=== PATIENT | female | born 1970 | race Caucasian/White ===

== ENCOUNTER 2017-05-06 16:41 | Emergency (ER) | payer OTHER ==
[~2017-05-06] VITALS: Ht 167.6 cm; Wt 90.0 kg
[2017-05-06 16:44] VITALS: BP 229/103; PULSE 98; RESP 16; TEMP 98; O2SAT 99
--- NOTE | 2017-05-06 18:25 | PD ---
HPI Chief Complaint: Buyer Tobacco Head Problem/Complaint Time Seen by Provider: 18:16 Travel History International Travel<30 days: No Contact w/Intl Traveler<30days: No Traveled to known affect area: No History of Present Illness HPI This is a 46-year-old female who presents to the emergency department with vaginal bleeding. She says she's been bleeding for 8 days now. She says she typically has periods that last about 6 days and her fairly heavy and she is accustomed to heavy menstrual cycles but she says that this bleeding has been different. She says that she will not be bleeding and then all of a sudden she will have gushing of bright red blood that looks like a crime scene. It will subside and then later she'll have another episode where she feels like she is gushing uncontrollably bright red blood. She says the blood is much brighter than her usual menstrual cycles and she's having some lower abdominal cramping both in the middle and the right abdomen. She's not having any other symptoms of menopause. She is feeling lightheaded and dizzy. She went to an outside hospital last evening. They did some blood work which was reassuring and did a pelvic exam. They did not do an ultrasound at that time. 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 [facility] Past Medical History Medical History: Denies Significant Hx ?: Not Social History Tobacco Use: Yes Allergies-Medications (Allergen,Severity, Reaction): Coded Allergies: No Known Allergies (Unverified , 05/06/17) Reported Meds & Prescriptions Reported Meds & Active Scripts Active No Active Prescriptions or Reported Medications Review of Systems Except as stated in HPI: all other systems reviewed are Neg Physical Exam Narrative GENERAL:Well appearing, no acute distress SKIN: Focused skin assessment warm and dry. HEAD: Atraumatic. Normocephalic. EYES: Pupils equal and round. No injection or drainage. ENT: Moist mucous membranes NECK: Trachea midline. CARDIOVASCULAR: Regular rate and rhythm. No murmur appreciated. RESPIRATORY: Clear to auscultation. Breath sounds equal bilaterally. GASTROINTESTINAL: Abdomen soft, tender to palpation in the suprapubic region and right adnexa UNDER TRIMMER: small amount of dark clot at the os, no obvious masses MUSCULOSKELETAL: No obvious deformities. NEUROLOGICAL: Awake and alert. No obvious cranial nerve deficits. Moving all extremities. PSYCHIATRIC: Appropriate mood and affect; insight and judgment normal. Data Data Last Documented VS Vital Signs Date Time Temp Pulse Resp B/P Pulse Ox O2 Delivery O2 Flow Rate FiO2 05/06/17 16:44 98.0 98 16 229/103 99 Orders Complete Blood Count With Diff (05/06/17 18:22) Prothrombin Time / Inr (Pt) (05/06/17 18:22) Act Partial Throm Time (Ptt) (05/06/17 18:22) Basic Metabolic Panel (Bmp) (05/06/17 18:22) Us Pelvis Comp W Transvaginal (05/06/17 ) Ed Urine Pregnancytest Poc (05/06/17 18:22) Labs Laboratory Tests Test 05/06/17 18:35 White Blood Count 11.4 TH/MM3 Red Blood Count 4.60 MIL/MM3 Hemoglobin 14.0 GM/DL Hematocrit 41.4 % Mean Corpuscular Volume 90.0 FL Mean Corpuscular Hemoglobin 30.5 PG Mean Corpuscular Hemoglobin 33.9 % Concent Red Cell Distribution Width 13.3 % Platelet Count 295 TH/MM3 Mean Platelet Volume 8.7 FL Neutrophils (%) (Auto) 65.8 % Lymphocytes (%) (Auto) 24.1 % Monocytes (%) (Auto) 7.9 % Eosinophils (%) (Auto) 1.7 % Basophils (%) (Auto) 0.5 % Neutrophils # (Auto) 7.5 TH/MM3 Lymphocytes # (Auto) 2.8 TH/MM3 Monocytes # (Auto) 0.9 TH/MM3 Eosinophils # (Auto) 0.2 TH/MM3 Basophils # (Auto) 0.1 TH/MM3 CBC Comment DIFF FINAL Differential Comment Prothrombin Time 10.4 SEC Prothromb Time International 0.9 RATIO Ratio Activated Partial 24.2 SEC Thromboplast Time MDM Medical Decision Making Medical Screen Exam Complete: Yes Emergency Medical Condition: Yes Interpretation(s) afebrile, hypertensive mild leukocytosis Differential Diagnosis Menorrhagia, AVM, malignancy, menopause Narrative Course This is a 46-year-old female who presents to the emergency department with vaginal bleeding. It concerns me because she's having any sports of bright red bleeding. Labs will be obtained, pelvic exam was fairly benign. Pelvic ultrasound will be obtained. If that is reassuring at think she can safely follow up with her combo welder at the end of the week. Scripts No Active Prescriptions or Reported Meds Danica Baker MD May 06, 2017 18:25
[2017-05-06 18:52] LABS: AUTOMATED NEUTROPHIL # 7.5 TH/MM3 (1.8-7.7); BASOPHIL # 0.1 TH/MM3 (0-0.2); BASOPHIL % 0.5 % (0.0-2.0); EOSINOPHIL # 0.2 TH/MM3 (0-0.4); EOSINOPHIL % 1.7 % (0.0-4.0); HEMATOCRIT 41.4 % (35.0-46.0); HEMO FLAGS DIFF FINAL; LYMPH % 24.1 % (9.0-44.0); LYMPHOCYTE # 2.8 TH/MM3 (1.0-4.8); MEAN CORPUSCULAR HEMOGLOBIN 30.5 PG (27.0-34.0); MEAN CORPUSCULAR HGB CONC 33.9 % (32.0-36.0); MONO % 7.9 % (0.0-8.0); NEUT % 65.8 % (16.0-70.0); PLATELET COUNT 295 TH/MM3 (150-450); RED CELL DISTRIBUTION WIDTH 13.3 % (11.6-17.2); WHITE BLOOD COUNT 11.4 TH/MM3 (4.0-11.0)
[2017-05-06 18:56] LABS: APTT (PATIENT) 24.2 SEC (24.3-30.1); INTERNATIONAL NORMALIZED RATIO 0.9 RATIO; PROTHROMBIN TIME - PATIENT 10.4 SEC (9.8-11.6)
[2017-05-06 19:24] LABS: BICARBONATE 24.1 MEQ/L (21.0-32.0)
[2017-05-06 19:25] LABS: POTASSIUM 4.2 MEQ/L (3.5-5.1)
[2017-05-06] MEDS ORDERED: KETOROLAC TROMETHAMINE 30 MG/ML (IVP) VIAL IV PUSH ONE (19:30)
--- NOTE | 2017-05-06 20:05 | RADRPT ---
EXAM DATE/TIME: 05/06/2017 19:15 CORRECTION Corrected on: May 06, 2017; typographical error in the impression was corrected. [facility] COMPARISON: No previous studies available for comparison. INDICATIONS : Heavy vaginal bleeding and right lower abdominal pain. MEDICAL HISTORY : Heavy vaginal bleeding. SURGICAL HISTORY : ENCOUNTER: Initial ACUITY: 1 week PAIN SCORE: 9/10 LOCATION: Bilateral pelvis. MEASUREMENTS: UTERUS: 10.5 x 8.8 x 5.9 cm ENDOMETRIAL STRIPE: >20 mm RIGHT OVARY: 2.8 x 1.7 x 1.7 cm LEFT OVARY: 3.1 x 2.1 x 2.5 cm FINDINGS: UTERUS: The myometrium has homogeneous echotexture without mass. Endometrium is markedly thickened with a mi ldly heterogeneous echotexture, predominantly hyperechoic. No gestational sac seen. There are sever al cystic areas in the cervix, the largest of which measures 1.5 x 1.3 cm. This is anechoic, possibl y located within the endocervical canal. RIGHT OVARY: Ovary contains no mass or significant cystic lesion. LEFT OVARY: No evidence of mass. No increased flow with color Doppler. Dominant cyst measuring 2.7 x 2.2 cm. MISCELLANEOUS: No free fluid. CONCLUSION: 1. Prominent thickening of the endometrium without focal cystic areas. 2. 1.5 cm cyst in the endocervical canal. 3. 2.7 cm left ovarian cyst. 4. No evidence of free fluid. Hawk Smith MD on May 06, 2017 at 20:00 Board Certified Radiologist. This report was verified electronically. Hawk Smith MD on May 06, 2017 at 20:21 Board Certified Radiologist. This report was verified electronically.
--- NOTE | 2017-05-06 20:26 | PD ---
Physical Exam Narrative GENERAL: Well-nourished, well-developed patient. SKIN: Warm and dry. HEAD: Normocephalic and atraumatic. EYES: No injection or drainage. ENT: No nasal drainage noted. NECK: Supple, trachea midline. CARDIOVASCULAR: Regular rate and rhythm RESPIRATORY: no increased effort. No accessory muscle use. NEUROLOGICAL: Awake and alert. Motor and sensory grossly within normal limits. Normal speech. Data Data Last Documented VS Vital Signs Date Time Temp Pulse Resp B/P Pulse Ox O2 Delivery O2 Flow Rate FiO2 05/06/17 16:44 98.0 98 16 229/103 99 162/87 on recheck on own, patient advised to monitor as outpatient Orders Complete Blood Count With Diff (05/06/17 18:22) Prothrombin Time / Inr (Pt) (05/06/17 18:22) Act Partial Throm Time (Ptt) (05/06/17 18:22) Basic Metabolic Panel (Bmp) (05/06/17 18:22) Us Pelvis Comp W Transvaginal (05/06/17 ) Ed Urine Pregnancytest Poc (05/06/17 18:22) Ketorolac Inj (Toradol Inj) (05/06/17 19:30) Labs Laboratory Tests Test 05/06/17 18:35 White Blood Count 11.4 TH/MM3 Red Blood Count 4.60 MIL/MM3 Hemoglobin 14.0 GM/DL Hematocrit 41.4 % Mean Corpuscular Volume 90.0 FL Mean Corpuscular Hemoglobin 30.5 PG Mean Corpuscular Hemoglobin 33.9 % Concent Red Cell Distribution Width 13.3 % Platelet Count 295 TH/MM3 Mean Platelet Volume 8.7 FL Neutrophils (%) (Auto) 65.8 % Lymphocytes (%) (Auto) 24.1 % Monocytes (%) (Auto) 7.9 % Eosinophils (%) (Auto) 1.7 % Basophils (%) (Auto) 0.5 % Neutrophils # (Auto) 7.5 TH/MM3 Lymphocytes # (Auto) 2.8 TH/MM3 Monocytes # (Auto) 0.9 TH/MM3 Eosinophils # (Auto) 0.2 TH/MM3 Basophils # (Auto) 0.1 TH/MM3 CBC Comment DIFF FINAL Differential Comment Prothrombin Time 10.4 SEC Prothromb Time International 0.9 RATIO Ratio Activated Partial 24.2 SEC Thromboplast Time Sodium Level 137 MEQ/L Potassium Level 4.2 MEQ/L Chloride Level 104 MEQ/L Carbon Dioxide Level 24.1 MEQ/L Anion Gap 9 MEQ/L Blood Urea Nitrogen 10 MG/DL Creatinine 0.67 MG/DL Estimat Glomerular Filtration 95 ML/MIN Rate Random Glucose 102 MG/DL Calcium Level 9.3 MG/DL [facility] Supervised Visit with [place]: No Interpretation(s) Last 24 hours Impressions Pelvis Ultrasound 05/06/17 0000 Signed Impressions: Service Date/Time: Saturday, May 06, 2017 19:15 - CONCLUSION: 1. Prominent thickening of the endometrium without focal cystic areas. 2. 1.5 cm cyst in the endocervical canal. 3. 2.7 cm left ovarian cyst. 4. Evidence of free fluid. Hawk Smith MD d/w radiologist and states dictation error as there is no free fluid Narrative Course Patient denies any new complaints and states that they are feeling better. Patient happy with care, all questions answered. Patient knows that follow up is incumbent on them and to return to the emergency room immediately if new or worsening symptoms develop. Patient given strict return precautions, vitals reviewed and are normal, agrees to further workup as an outpatient. Diagnosis Primary Impression: Vaginal bleeding Patient Instructions: General Instructions Additional Instruction: return as needed, follow with gynecology this week, motrin as needed for pain, keep blood pressure log Med/Other Pt SpecificInfo: No Change to Meds Scripts No Active Prescriptions or Reported Meds Disposition: 01 DISCHARGE HOME Condition: Stable Lydia Bourgeois MD May 06, 2017 20:25
== END 2017-05-06 20:54 | disposition home or self-care (01) ==
LOC: NEPC 16:41
DX: N93.9 Abnormal uterine and vaginal bleeding, unspecified (principal); N83.202 Unspecified ovarian cyst, left side; Z72.0 Tobacco use
CPT/HCPCS: 76830; 76856; 80048; 84703; 85025; 85610; 85730; 96374; 99285; J1885

== ENCOUNTER 2018-01-09 06:52 | Observation (INO) | payer OTHER ==
[~2018-01-09] VITALS: Ht 167.6 cm; Wt 90.0 kg
[2018-01-09] VITALS (10 sets, daily range): BP systolic 139–218; BP diastolic 80–116; PULSE 76–104; RESP 16–19; TEMP 96.4–98.6; O2SAT 95–100
[2018-01-09] MEDS ORDERED: LORazepam 2 MG/ML VIAL IV PUSH ONE (07:15)
[2018-01-09] MEDS ORDERED: SODIUM CHLORIDE 0.9% FLUSH 10 ML FLUSH IVF PRN (07:15)
[2018-01-09] MEDS ORDERED: IBUP1TAB5 PO (07:19)
[2018-01-09 07:47] LABS: AUTOMATED NEUTROPHIL # 7.1 TH/MM3 (1.8-7.7); BASOPHIL % 0.4 % (0.0-2.0); EOSINOPHIL # 0.1 TH/MM3 (0-0.4); EOSINOPHIL % 0.7 % (0.0-4.0); HEMATOCRIT 46.4 % (35.0-46.0); HEMOGLOBIN 15.7 GM/DL (11.6-15.3); LYMPH % 18.4 % (9.0-44.0); LYMPHOCYTE # 1.8 TH/MM3 (1.0-4.8); MEAN CELL VOLUME 89.7 FL (80.0-100.0); MEAN CORPUSCULAR HEMOGLOBIN 30.2 PG (27.0-34.0); MEAN CORPUSCULAR HGB CONC 33.7 % (32.0-36.0); MEAN PLATELET VOLUME 8.7 FL (7.0-11.0); MONO % 8.2 % (0.0-8.0); MONOCYTE # 0.8 TH/MM3 (0-0.9); NEUT % 72.3 % (16.0-70.0); PLATELET COUNT 292 TH/MM3 (150-450); RED BLOOD COUNT 5.18 MIL/MM3 (4.00-5.30); RED CELL DISTRIBUTION WIDTH 14.3 % (11.6-17.2); WHITE BLOOD COUNT 9.8 TH/MM3 (4.0-11.0)
--- NOTE | 2018-01-09 07:54 | RADRPT ---
EXAM DATE/TIME: 01/09/2018 07:38 [facility] COMPARISON: No previous studies available for comparison. INDICATIONS : Left face numbness RADIATION DOSE: 36.24 CTDIvol (mGy) MEDICAL HISTORY : None SURGICAL HISTORY : Tubal ligation. Hysterectomy. section.C5-C6 surgery ENCOUNTER: Initial ACUITY: 1 day PAIN SCALE: 4/10 LOCATION: cranial TECHNIQUE: Multiple contiguous axial images were obtained of the head. Using automated exposure control and adj ustment of the mA and/or kV according to patient size, radiation dose was kept as low as reasonably a chievable to obtain optimal diagnostic quality images. DICOM format image data is available electro nically for review and comparison. FINDINGS: CEREBRUM: The ventricles are normal for age. No evidence of midline shift, mass lesion, hemorrhage or acute in farction. No extra-axial fluid collections are seen. POSTERIOR FOSSA: The cerebellum and brainstem are intact. The 4th ventricle is midline. The cerebellopontine angle i s unremarkable. EXTRACRANIAL: The visualized portion of the orbits is intact. SKULL: The calvaria is intact. No evidence of skull fracture. CONCLUSION: Normal examination. Maco Gonsales MD on January 09, 2018 at 7:52 Board Certified Radiologist. This report was verified electronically.
--- NOTE | 2018-01-09 08:07 | PD ---
HPI . Paresthesias Chief Complaint: Neuro Symptoms/ Deficits Time Seen by Provider: 07:04 Travel History International Travel<30 days: No Contact w/Intl Traveler<30days: No Traveled to known affect area: No History of Present Illness HPI This patient presents with a chief complaint of paresthesias involving the left side of her body. Onset was at 6 AM. Symptoms have persisted. Symptoms are mild. There are no exacerbating or relieving factors. No previous similar history. She is a smoker. Otherwise, she has no risk factors for cerebrovascular disease such as hypertension, diabetes, hyperlipidemia. PFSH Past Medical History Diminished Hearing: No GERD: Yes ?: Not : 4 Para: 3 Tubal Ligation: Yes Past Surgical History Section: Yes (X 1) Gynecologic Surgery: Yes Hysterectomy: Yes Other Surgery: Yes (BREAST AUGMENTATION, TUMMY TUCK, NECK SX) Social History Alcohol Use: Yes Tobacco Use: Yes Substance Use: No Allergies-Medications (Allergen,Severity, Reaction): Coded Allergies: No Known Allergies (Unverified , 05/06/17) Reported Meds & Prescriptions Reported Meds & Active Scripts Active Reported Ibuprofen 400 Mg Tab 400 Mg PO Q6H PRN Review of Systems Except as stated in HPI: all other systems reviewed are Neg General / Constitutional: No: Fever, Chills Eyes: No: Diploplia, Blurred Vision HENT: No: Headaches Cardiovascular: No: Chest Pain or Discomfort, Palpitations Respiratory: No: Shortness of Breath Gastrointestinal: No: Nausea, Vomiting Neurologic: Positive: Focal Abnormalities, Paresthesia, No: Weakness, Dizziness , Headache, Change in Mentation, Slurred Speech Physical Exam Narrative GENERAL: Patient is awake and alert. She looks anxious. SKIN: warm/dry. HEAD: Normocephalic. Atraumatic. EYES: Pupils equal and round. No scleral icterus. No injection or drainage. ENT: No nasal bleeding or discharge. Mucous membranes pink and moist. NECK: Trachea midline. Full range of motion without pain.. CARDIOVASCULAR: Regular rate and rhythm. Heart sounds are normal. RESPIRATORY: No accessory muscle use. Clear to auscultation. Breath sounds equal bilaterally. MUSCULOSKELETAL: No obvious deformities. NEUROLOGICAL: A and O 3. Lifting her brows, closing her eyes, smiling and protruding her tongue are all symmetrical. Full and equal muscle strength in all muscle groups. Negative pronator drift. PSYCHIATRIC: Appropriate mood and affect; insight and judgment normal. Data Data Last Documented VS Vital Signs Date Time Temp Pulse Resp B/P (MAP) Pulse Ox O2 Delivery O2 Flow Rate FiO2 01/09/18 07:17 97 Room Air 01/09/18 07:13 104 18 01/09/18 06:58 98.2 Orders Orders Electrocardiogram (01/09/18 07:13) Complete Blood Count With Diff (01/09/18 07:13) Basic Metabolic Panel (Bmp) (01/09/18 07:13) Troponin I (01/09/18 07:13) Ct Brain W/O Iv Contrast(Rout) (01/09/18 07:13) Ecg Monitoring (01/09/18 07:13) Iv Access Insert/Monitor (01/09/18 07:13) Oximetry (01/09/18 07:13) Sodium Chloride 0.9% Flush (Ns Flush) (01/09/18 07:15) Lorazepam Inj (Ativan Inj) (01/09/18 07:15) Admit Order (Ed Use Only) (01/09/18 09:26) Labs Laboratory Tests Test 01/09/18 07:30 White Blood Count 9.8 TH/MM3 Red Blood Count 5.18 MIL/MM3 Hemoglobin 15.7 GM/DL Hematocrit 46.4 % Mean Corpuscular Volume 89.7 FL Mean Corpuscular Hemoglobin 30.2 PG Mean Corpuscular Hemoglobin Concent 33.7 % Red Cell Distribution Width 14.3 % Platelet Count 292 TH/MM3 Mean Platelet Volume 8.7 FL Neutrophils (%) (Auto) 72.3 % Lymphocytes (%) (Auto) 18.4 % Monocytes (%) (Auto) 8.2 % Eosinophils (%) (Auto) 0.7 % Basophils (%) (Auto) 0.4 % Neutrophils # (Auto) 7.1 TH/MM3 Lymphocytes # (Auto) 1.8 TH/MM3 Monocytes # (Auto) 0.8 TH/MM3 Eosinophils # (Auto) 0.1 TH/MM3 Basophils # (Auto) 0.0 TH/MM3 CBC Comment DIFF FINAL Differential Comment Blood Urea Nitrogen 15 MG/DL Creatinine 0.73 MG/DL Random Glucose 94 MG/DL Calcium Level 8.9 MG/DL Sodium Level 137 MEQ/L Potassium Level 4.3 MEQ/L Chloride Level 104 MEQ/L Carbon Dioxide Level 24.1 MEQ/L Anion Gap 9 MEQ/L Estimat Glomerular Filtration Rate 85 ML/MIN Troponin I LESS THAN 0.02 NG/ML MDM Medical Decision Making Medical Screen Exam Complete: Yes Emergency Medical Condition: Yes Medical Record Reviewed: Yes (This patient has no chronic medical issues listed on her problems.) Interpretation(s) EKG shows a sinus rhythm with a rate of 101. No ST segment elevation or depression. Differential Diagnosis Differential diagnosis includes but is not limited to TIA, CVA, brain tumor, migraine, anxiety Narrative Course This patient presents complaining with left-sided paresthesias. Her neurological exam is intact. She seems a little anxious. Stroke workup is in process. In the meantime, she is being given Ativan. CBC & BMP Diagram 01/09/18 07:30 Calcium Level 8.9 trop < 0.[address] 01/09/18 0713 Signed Impressions: Service Date/Time: Tuesday, January 09, 2018 07:38 - CONCLUSION: Normal examination. Maco Gonsales MD This patient has possibly had a TIA which resolved prior to presentation. She is interested in an observation admission for further evaluation. Physician Communication Physician Communication Dr. Thompson will admit to OBS for further evaluation. Diagnosis Primary Impression: TIA (transient ischemic attack) Qualified Codes: G45.1 - Carotid artery syndrome (hemispheric) Admitting Information Admitting Physician Requests: Observation Condition: Stable Araceli Villaseñor MD Jan 09, 2018 08:07
[2018-01-09 08:11] LABS: TROPONIN I LESS THAN 0.02 NG/ML (0.02-0.05)
[2018-01-09 08:12] LABS: BICARBONATE 24.1 MEQ/L (21.0-32.0); BLOOD UREA NITROGEN 15 MG/DL (7-18); CALCIUM 8.9 MG/DL (8.5-10.1); CHLORIDE 104 MEQ/L (98-107); CREATININE 0.73 MG/DL (0.50-1.00); GLOMERULAR FILTRATION RATE 85 ML/MIN (>89); GLUCOSE,RANDOM 94 MG/DL (74-106); SODIUM (NA) 137 MEQ/L (136-145)
[2018-01-09] MEDS ORDERED: ENALAPRILAT 1.25 MG/ML VIAL IV PUSH PRN (09:30)
[2018-01-09] MEDS ORDERED: SODIUM CHLORIDE 0.9% FLUSH 10 ML FLUSH IV FLUSH PRN ×2 (09:30→20:15)
--- NOTE | 2018-01-09 10:25 | HHI.HP ---
HPI Service [facility] Hospitalists Primary Care Physician Dr. Alena Rivera Admission Diagnosis Transient neurological deficit Chief Complaint: Left UE shaking and discoordination Travel History International Travel<30 Days: No Contact w/Intl Traveler <30 Da: No Traveled to Known Affected Are: No History of Present Illness Mrs. Duenas is a pleasant 47 y/o WF with tobacco use and elevated BP recently. Pt presented to the ED with transient neurological symptoms. She reportedly woke up this morning feeling normal when she went downstairs to drink her coffee she had some shakiness in her left hand that she couldn't control or stop and some dis-coordination of the left hand when trying to bring her cup to her mouth. She also felt that her head was shaky and left like the left side of her face "felt weird." She still went to work this morning but the symptoms were persisting. She states that when she was trying to walk down the [place] at work she felt off balance and was listing to the left and bumping into the wall. She states that these symptoms persisted until she came to the hospital, approximately 2 hours. She was fully aware of what was going on during this episode but states that she felt "very slow." There was no loss of bowel or bladder function. She had a similar episode after she had cervical spine surgery in 2005 and was in the ICU for 2 weeks reportedly after that surgery. She reports that Neurologist saw her after that hospitalization for a "head yarely " and reports that she was told she had "dystonia" when she lived in [place]. No family hx of tremors. She states that when she has been seen at her doctors office's recently her BP has been high but she is not currently on any medications. Her BP in the ED was elevated at 213/99 at admission. She also had been seen by Endocrinology in the past for "adrenal gland or cortisol" issues in 2003. Denies any issues with anxiety or depression. She is a chronic tobacco user and smokes 1ppd since around age 20. Denies any illicit drug use. Pt did drink more alcohol than she usually does this past weekend because she was at a friends birthday [employer]. She typically has 1-2 alcoholic beverage around 3 times per week. Review of Systems Constitutional: DENIES: Diaphoretic episodes, Fever, Chills, Dizziness Eyes: DENIES: Blurred vision, Diplopia, Vision loss Ears, nose, mouth, throat: DENIES: Tinnitus, Hearing loss, Vertigo, Hoarseness , Ear Pain, Running Nose Respiratory: DENIES: Cough, Shortness of breath Cardiovascular: DENIES: Chest pain, Palpitations, Lower Extremity Edema Gastrointestinal: DENIES: Abdominal pain, Diarrhea, Nausea, Vomiting Genitourinary: DENIES: Urinary frequency, Urinary incontinence, Urgency Musculoskeletal: DENIES: Back pain Integumentary: DENIES: Rash Neurologic: COMPLAINS OF: Localized weakness, Paresthesias, Tremor, Poor Balance, DENIES: Headache Psychiatric: DENIES: Confusion Past Family Social History Past Medical History Tobacco use Hx of uterine fibroids Past Surgical History Laparoscopic supracervical hysterectomy in 2017 Cesarian section x 1 Bilateral breast augmentation (2000) Abdominoplasty (2000) Bilateral tubal ligation Neck surgery (2005) Reported Medications Ibuprofen 400 Mg PO Q6H PRN Allergies: Coded Allergies: No Known Allergies (Unverified Allergy, Unknown, 01/09/18) Family History Brother at age 44 from CAD/GA Sister had GA at age 35 Grandmother with hx of aneurysm Social History (+)Tobacco use, 1ppd since age 20 (+)Alcohol use, 1-2 drinks, 3 times per week Pt is and has 3 grown children 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 SKIN: No rashes, ecchymoses or lesions. Cool and dry. HEENT: Atraumatic. Normocephalic. No temporal or scalp tenderness. No scleral icterus. Airway patent. NECK: Trachea midline, supple, nontender. CARDIO: Regular. RESP: CTA bilaterally. No wheezes, rales, or rhonchi. ABD: +BS, soft, non-tender, nondistended. EXT: Extremities without clubbing, cyanosis, or edema. NEURO: Awake and alert. Cranial nerves II through XII intact. Motor and sensory grossly within normal limits. Five out of 5 muscle strength in all muscle groups. Normal speech. Laboratory Laboratory Tests Test 01/09/18 07:30 White Blood Count 9.8 Red Blood Count 5.18 Hemoglobin 15.7 Hematocrit 46.4 Mean Corpuscular Volume 89.7 Mean Corpuscular Hemoglobin 30.2 Mean Corpuscular Hemoglobin Concent 33.7 Red Cell Distribution Width 14.3 Platelet Count 292 Mean Platelet Volume 8.7 Neutrophils (%) (Auto) 72.3 Lymphocytes (%) (Auto) 18.4 Monocytes (%) (Auto) 8.2 Eosinophils (%) (Auto) 0.7 Basophils (%) (Auto) 0.4 Neutrophils # (Auto) 7.1 Lymphocytes # (Auto) 1.8 Monocytes # (Auto) 0.8 Eosinophils # (Auto) 0.1 Basophils # (Auto) 0.0 CBC Comment DIFF FINAL Differential Comment Blood Urea Nitrogen 15 Creatinine 0.73 Random Glucose 94 Calcium Level 8.9 Sodium Level 137 Potassium Level 4.3 Chloride Level 104 Carbon Dioxide Level 24.1 Anion Gap 9 Estimat Glomerular Filtration Rate 85 Troponin I LESS THAN 0.02 Result Diagram: 01/09/1872901/09/18729 Imaging Last Impressions Head CT 01/09/18712 Signed Impressions: Service Date/Time: Tuesday, January 09, 2018 07:38 - CONCLUSION: Normal examination. MD Renny Colon VTE Risk Assessment Tyreserini VTE Risk Assessment: No/Low Risk (score <= 1) Caprini Risk Assessment Model Point Value = 1 Point Value = 2 Point Value = 3 Point Value = 5 Age 41-60 Minor surgery BMI > 25 kg/m2 Swollen legs Varicose veins or History of unexplained or recurrent spontaneous Oral contraceptives or hormone replacement Sepsis (< 1 month) Serious lung disease, including pneumonia (< 1 month) Abnormal pulmonary function Acute myocardial infarction Congestive heart failure (< 1 month) History of inflammatory bowel disease Medical patient at bed rest Age 61-74 Arthroscopic surgery Major open surgery (> 45 min) Laparoscopic surgery (> 45 min) Malignancy Confined to bed (> 72 hours) Immobilizing plaster cast Central venous access Age >= 75 History of VTE Family history of VTE Factor V Leiden Prothrombin [id number] Lupus anticoagulant Anticardiolipin antibodies Elevated serum homocysteine Heparin-induced thrombocytopenia Other congenital or acquired thrombophilia Stroke (< 1 month) Elective arthroplasty Hip, pelvis, or leg fracture Acute spinal cord injury (< 1 month) Prophylaxis Regimen Total Risk Factor Score Risk Level Prophylaxis Regimen 0-1 Low Early ambulation 2 Moderate Order ONE of the following: *Sequential Compression Device (SCD) *Heparin 5000 units SQ BID 3-4 Higher Order ONE of the following medications: *Heparin 5000 units SQ TID *Enoxaparin/Lovenox 40 mg SQ daily (WT < 150 kg, CrCl > 30 mL/min) *Enoxaparin/Lovenox 30 mg SQ daily (WT < 150 kg, CrCl > 10-29 mL/min) *Enoxaparin/Lovenox 30 mg SQ BID (WT < 150 kg, CrCl > 30 mL/min) AND/OR *Sequential Compression Device (SCD) 5 or more Highest Order ONE of the following medications: *Heparin 5000 units SQ TID (Preferred with Epidurals) *Enoxaparin/Lovenox 40 mg SQ daily (WT < 150 kg, CrCl > 30 mL/min) *Enoxaparin/Lovenox 30 mg SQ daily (WT < 150 kg, CrCl > 10-29 mL/min) *Enoxaparin/Lovenox 30 mg SQ BID (WT < 150 kg, CrCl > 30 mL/min) AND *Sequential Compression Device (SCD) Assessment and Plan Problem List: (1) Transient neurological symptoms ICD Codes: R29.818 - Other symptoms and signs involving the nervous system Status: Acute Plan: Transient Neurological symptoms HTN - Pt is a 47 y/o WF with tobacco use and elevated BP. - Pt presented to the ED with transient neurological symptoms of shakiness in her left hand and some dis-coordination of the left hand. She also felt that her head was shaky and left like the left side of her face "felt weird." She felt off balance when walking and was listing to the left and bumping into the wall. She states that these symptoms persisted until she came to the hospital, approximately 2 hours, and then fully resolved. She was fully aware of what was going on during this episode but states that she felt "very slow." - Her BP in the ED was elevated at 213/99 at admission. - Head CT in the ED was negative. - Etiology for the pts symptoms are unclear - Check MRI/MRA Brain to r/o CVA - Check Carotid US - ASA - Consult Neurology - We will allow permissive HTN for now but will need to reign in the BP if Neurology agrees - Vasotec PRN - 2D echo ordered - Telemetry/Holter Monitor ordered - Check FLP and Hgb A1C - Check EEG - Check Cervical spine CT as pt had previous cervical spine surgery, the specifics of which are unclear - Check B12, Folic acid, TSH, Free T3 - PT evaluation - Supportive care - Further recommendations as the case develops (2) HTN (hypertension) ICD Codes: I10 - Essential (primary) hypertension Status: Chronic Assessment and Plan Patient examined. Assessment and plan formulated with Tracy Vogel PA-C. I agree with the above. Problem Qualifiers (1) HTN (hypertension): Qualified Codes: I10 - Essential (primary) hypertension Tracy Vogel Jan 09, 2018 10:25 Rehan Thompson DO Jan 13, 2018 22:47
[2018-01-09 10:26] LABS: ALKALINE PHOSPHATASE 48 U/L (45-117); TOTAL BILIRUBIN ADULT 0.4 MG/DL (0.2-1.0); TOTAL PROTEIN 8.2 GM/DL (6.4-8.2)
[2018-01-09 10:27] LABS: ALBUMIN 4.1 GM/DL (3.4-5.0); ALT (GPT) 28 U/L (10-53); DIRECT BILIRUBIN ADULT 0.1 MG/DL (0.0-0.2); INDIRECT BILIRUBIN 0.3 MG/DL (0.0-0.8)
[2018-01-09 10:30] LABS: AST (GOT) 32 U/L (15-37)
--- NOTE | 2018-01-09 12:15 | RADRPT ---
EXAM DATE/TIME: 01/09/2018 09:55 [facility] COMPARISON: No previous studies available for comparison. INDICATIONS : Left sided numbness. MEDICAL HISTORY : Hypertension. SURGICAL HISTORY : Fusion, cervical. Hysterectomy. section. ENCOUNTER: Initial ACUITY: 1 day PAIN SCORE: 0/10 LOCATION: cranial Please note a normal MRA of the brain does not entirely exclude the possibility of a small aneurysm, nor the possibility of distal intracranial vessel disease. TECHNIQUE: 3D time of flight MRA was performed. Source images, multiplanar STS MIP, and 3D volume MIP reconstru ctions were reviewed. FINDINGS: There is excellent visualization of the major intracranial arteries out to the second-order branch ve ssels. There is no evidence for aneurysm, vessel truncation or stenosis, and no evidence for vascula r malformation. There is an aplastic A1 segment on the left. There is a patent posterior communicatin g artery on the left. CONCLUSION: 1. Negative MRA of the brain Edwin August MD on January 09, 2018 at 12:10 Board Certified Radiologist. This report was verified electronically.
--- NOTE | 2018-01-09 12:17 | RADRPT ---
EXAM DATE/TIME: 01/09/2018 09:55 [facility] COMPARISON: No previous studies available for comparison. INDICATIONS : Left sided numbness this morning. MEDICAL HISTORY : Hypertension. SURGICAL HISTORY : Fusion, cervical. Hysterectomy. section. ENCOUNTER: Initial ACUITY: 1 day PAIN SCORE: 0/10 LOCATION: cranial TECHNIQUE: Multiplanar, multisequence MRI of the brain was performed without contrast. FINDINGS: CEREBRUM: The ventricles are normal for age. No evidence of midline shift, mass lesion, hemorrhage or acute in farction. No extraaxial fluid collections are seen. The pituitary gland and suprasellar cistern are normal in configuration. WHITE MATTER: No significant signal abnormalities are seen in the white matter with the exception of single area of the os is in the white matter in the right temporal lobe of doubtful clinical significance. POSTERIOR FOSSA: The cerebellum and brainstem are intact. The 4th ventricle is midline. The cerebellopontine angle is unremarkable. The cerebellar tonsils are normal in position. DIFFUSION IMAGING: No focal areas of restricted diffusion are seen. No evidence of acute infarction. EXTRACRANIAL: The visualized portions of the orbits and paranasal sinuses are unremarkable. CONCLUSION: 1. No evidence of acute intracranial pathology. No masses are identified. Edwin August MD on January 09, 2018 at 12:12 Board Certified Radiologist. This report was verified electronically.
--- NOTE | 2018-01-09 12:18 | RADRPT ---
EXAM DATE/TIME: 01/09/2018 10:20 [facility] COMPARISON: No previous studies available for comparison. INDICATIONS : Left-sided paresthesias. MEDICAL HISTORY : Gastroesophageal reflux disease. SURGICAL HISTORY : section. ENCOUNTER: Initial ACUITY: 1 day PAIN SCORE: 0/10 LOCATION: Bilateral neck PEAK SYSTOLIC VELOCITIES (cm/sec): ICA/CCA RATIO: Right: 1.5 Left: 0.8 ICA: Right: 129 Left: 88 CCA: Right: 86 Left: 114 ECA: Right: 148 Left: 98 VERTEBRAL: Right: 46 antegrade Left: 69 antegrade Elevated flow velocities and ICA/CCA ratios have been found to correlate with increased degrees of vessel stenosis, calculated as percentage of diameter relative to a normal segment of distal ICA/CCA FINDINGS: RIGHT CAROTID: Mildly elevated proximal ICA velocities LEFT CAROTID: No significant stenosis is visualized. The waveforms are within normal limits. VERTEBRAL ARTERIES: Antegrade flow is seen in both vertebral arteries. MISCELLANEOUS: None. CONCLUSION: 1. Minimal carotid plaque with mildly elevated right proximal ICA velocities, likely artifactual alth ough consistent with mild stenosis. 2. No left carotid stenosis. 3. Antegrade vertebral artery flow bilaterally. Kofi Falk MD on January 09, 2018 at 12:13 Board Certified Radiologist. This report was verified electronically.
[2018-01-09 13:46] LABS: FOLATE 9.3 NG/ML (3.1-17.5); FREE T4 0.76 NG/DL (0.76-1.46)
--- NOTE | 2018-01-09 15:13 | EKG ---
Date Performed: 01/09/2018 Time Performed: 07:17:25 PTAGE: 47 years EKG: SINUS TACHYCARDIA POSSIBLE LEFT ATRIAL ENLARGEMENT ABNORMAL RHYTHM ECG NO PREVIOUS TRACING DOCTOR: Alli Watson Interpretating Date/Time 01/09/2018 15:10:36
[2018-01-09 16:09] LABS: HEMOGLOBIN A1C 5.5 % (4.3-6.0)
--- NOTE | 2018-01-09 16:20 | RADRPT ---
EXAM DATE/TIME: 01/09/2018 15:09 [facility] COMPARISON: No previous studies available for comparison. INDICATIONS : Left hand paresthesis and dis-coordination RADIATION DOSE: 26.08 CTDIvol (mGy) MEDICAL HISTORY : None SURGICAL HISTORY : Tubal ligation. Hysterectomy.C spine fussion ENCOUNTER: Initial ACUITY: 1 day PAIN SCALE: 0/10 LOCATION: neck TECHNIQUE: Volumetric scanning of the cervical spine was performed. Multiplanar reconstructions in the sagittal, coronal and oblique axial planes were performed. Using automated exposure control and adjustment o f the mA and/or kV according to patient size, radiation dose was kept as low as reasonably achievable to obtain optimal diagnostic quality images. DICOM format image data is available electronically f or review and comparison. FINDINGS: VERTEBRAE: Normal vertebral body height. ALIGNMENT: No evidence of subluxation. C2-C3: The bony spinal canal is normal in size. No evidence of disc bulge or herniation. The neural forami na are bilaterally patent. C3-C4: The bony spinal canal is normal in size. No evidence of disc bulge or herniation. The neural forami na are bilaterally patent. C4-C5: The bony spinal canal is normal in size. No evidence of disc bulge or herniation. The neural forami na are bilaterally patent. C5-C6: Status post anterior cervical fusion. Neural foramen adequate. C6-C7: The bony spinal canal is normal in size. No evidence of disc bulge or herniation. The neural forami na are bilaterally patent. C7-T1: The bony spinal canal is normal in size. No evidence of disc bulge or herniation. The neural forami na are bilaterally patent. CONCLUSION: Negative. MRI of the cervical spine may be of benefit. Travis Cueva MD FACR on January 09, 2018 at 16:01 Board Certified Radiologist. This report was verified electronically.
[2018-01-09] MEDS ORDERED: LORazepam 2 MG/ML VIAL IV PRN (19:00)
[2018-01-09] MEDS ORDERED: DEXTROSE 50% IN WATER 50 ML VIAL(D50) IV PUSH PRN (20:15)
[2018-01-09] MEDS ORDERED: GLUCAGON 1 MG/ML VIAL OTHER PRN (20:15)
--- NOTE | 2018-01-09 20:41 | MB ---
cc: Alex Pan MD, PhD DATE: 01/09/2018 REASON FOR CONSULTATION: Possible TIA. HISTORY OF PRESENT ILLNESS: Ms. Duenas is a very nice 47-year-old female who was in her usual state of health until this morning. She woke up, was not feeling well. She then noted some shakiness of left hand and some clumsiness and numbness as well, also numbness in left side of the face, developed a tremulousness to the left hand and left head as well. She went to work, found herself unsteady, walking in an unsteady fashion. She is clumsy in the left hand as well. Now, basically resolved back to normal. She has a history of cervical spine surgery in the past and has been under the care of a neurologist. Apparently, had an MRI of the brain, which showed old strokes in the past, but she is not aware of these clinically. She has a history of migraine headaches in the past, but denies migrainous-type symptoms. Today, she did have some pain behind the eyes. PAST MEDICAL HISTORY: She has a history of recent hysterectomy, history of headaches, probable migraine, history of cervical spine surgery, laparoscopic hysterectomy, , bilateral breast augmentation. MEDICINES AT HOME: Ibuprofen, aspirin 1 a day for the past week or so. FAMILY HISTORY: Remarkable for coronary disease and [place] in a brother who at 44. Sister had an [place] at 35. Apparently, 1 sibling had a clotting disturbance, for which they had to take Coumadin. SOCIAL HISTORY: She does smoke. She drinks alcohol occasionally. No drug use. NEUROLOGIC EXAMINATION: Blood pressure is 139/80, pulse 76, respiratory rate is 19, temperature 97 degrees. Higher cortical functions normal. Cranial nerves are intact. Motor exam is normal strength and tone of all groups. There is no drift. Fine motor skills normal. Reflexes are symmetric. DIAGNOSTIC DATA: MRI of the brain is normal. Carotid ultrasound, minimal plaquing, no significant stenosis is identified. Cervical spine CT is unremarkable. MRA brain normal. LABORATORY DATA: White count 9800, hemoglobin 15.7, hematocrit 46%, platelets 292,000. Sodium 137, potassium 4.3, chloride 104, CO2 of 24, BUN is 15, creatinine 0.73, GFR is 85, glucose 94, AST 32, ALT 28. B12 is 255. EKG: Sinus tachycardia. IMPRESSION: Probable transient ischemic attack, now resolved. RECOMMENDATION: Since she was on aspirin, would recommend starting Plavix 75 mg daily. We will obtain an echocardiogram. Given her young age, consider SAMSON. Also, check labs to rule out hypercoagulable state and check lipid panel. Alex Pan MD, PhD AMMY/SB , 08:07 PM , 08:40 PM
[2018-01-09] MEDS: SODIUM CHLORIDE 0.9% FLUSH 10 ML FLUSH IV FLUSH SCH (20:44)
[2018-01-09] MEDS: NICOTINE 21 MG/24 HR PATCH T-DERMAL SCH (20:44)
[2018-01-09] MEDS: CLOPIDOGREL 75 MG TAB PO SCH (20:44)
[2018-01-09] MEDS ORDERED: ATORVASTATIN 10 MG TAB PO SCH (21:00)
[2018-01-09] MEDS ORDERED: SODIUM CHLORIDE 0.9% FLUSH 10 ML FLUSH IV FLUSH SCH (21:00)
[2018-01-09] MEDS: INSULIN ASPART SUPPLEMENTAL SCALE SQ SCH (21:00)
[2018-01-10] VITALS (7 sets, daily range): BP systolic 135–172; BP diastolic 82–90; PULSE 80–109; RESP 16–18; TEMP 97.9–99.5; O2SAT 94–97
[2018-01-10 06:39] LABS: BASOPHIL % 0.4 % (0.0-2.0); EOSINOPHIL # 0.1 TH/MM3 (0-0.4); EOSINOPHIL % 1.4 % (0.0-4.0); HEMATOCRIT 45.1 % (35.0-46.0); LYMPH % 35.1 % (9.0-44.0); LYMPHOCYTE # 2.6 TH/MM3 (1.0-4.8); MEAN CELL VOLUME 90.7 FL (80.0-100.0); MEAN CORPUSCULAR HEMOGLOBIN 30.1 PG (27.0-34.0); MEAN CORPUSCULAR HGB CONC 33.1 % (32.0-36.0); MEAN PLATELET VOLUME 8.7 FL (7.0-11.0); MONO % 8.5 % (0.0-8.0); MONOCYTE # 0.6 TH/MM3 (0-0.9); NEUT % 54.6 % (16.0-70.0); PLATELET COUNT 265 TH/MM3 (150-450); RED BLOOD COUNT 4.98 MIL/MM3 (4.00-5.30); WHITE BLOOD COUNT 7.4 TH/MM3 (4.0-11.0)
[2018-01-10 06:59] LABS: BICARBONATE 26.6 MEQ/L (21.0-32.0); CALCIUM 8.8 MG/DL (8.5-10.1); CREATININE 0.67 MG/DL (0.50-1.00)
[2018-01-10 07:05] LABS: CHOLESTEROL/ HDL RATIO 2.38 RATIO; HDL CHOLESTEROL 68.3 MG/DL (40.0-60.0)
--- NOTE | 2018-01-10 07:43 | PD.CONS ---
HPI Consult Requested By Primary Care Physician No Primary Care Physician History of Present Illness 47-year-old female with past medical history of tobacco abuse who presented with TIA-like symptoms. The patient states she woke up yesterday with tingling on her left side, uncoordination of her left hand, and feeling off balance, and the symptoms have continued to improve. Neuroimaging has been negative to date. Neurology has consulted us for SAMSON evaluation. EKG and telemetry with no signs of A. fib, although the patient has noted intermittent episodes of palpitations at work over the past few months. Review of Systems Negative except as stated in the HPI Past Family Social History Allergies: Coded Allergies: No Known Allergies (Unverified Allergy, Unknown, 01/09/18) Past Medical History Tobacco use Hx of uterine fibroids Past Surgical History Laparoscopic supracervical hysterectomy in 2017 Cesarian section x 1 Bilateral breast augmentation (2000) Abdominoplasty (2000) Bilateral tubal ligation Neck surgery (2005) Reported Medications Reported Meds & Active Scripts Active Reported Ibuprofen 400 Mg Tab 400 Mg PO Q6H PRN Active Ordered Medications Current Medications Medications (Trade) Dose Ordered Sig/Gabino Route Start Time Stop Time Status Last Admin (Vasotec Inj) 1.25 mg Q4H PRN IV PUSH 01/09/18 09:30 (Aspirin) 325 mg DAILY PO 01/10/18 09:00 (Lipitor) 10 mg HS PO 01/09/18 21:00 01/09/18 20:43 (Habitrol 21 Mg Patch.24 Hr) 1 patch DAILY T-DERMAL 01/09/18 20:00 01/09/18 20:44 Miscellaneous Information 1 DAILY T-DERMAL 01/10/18 09:00 (Ativan Inj) 1 mg Q4H PRN IV 01/09/18 19:00 01/09/18 20:59 (NS Flush) 2 ml BID IV FLUSH 01/09/18 21:00 01/09/18 20:44 (NS Flush) 2 ml UNSCH PRN IV FLUSH 01/09/18 20:15 (Plavix) 75 mg DAILY PO 01/09/18 20:15 01/09/18 20:44 (NovoLOG SUPPLEMENTAL SCALE) 1 ACHS SQ 01/09/18 21:00 (D50w (Vial) Inj) 50 ml UNSCH PRN IV PUSH 01/09/18 20:15 (Glucagon Inj) 1 mg UNSCH PRN OTHER 01/09/18 20:15 Family History Brother at age 44 from CAD/[place] Sister had [place] at age 35 Grandmother with hx of aneurysm Social History (+)Tobacco use, 1ppd since age 20 (+)Alcohol use, 1-2 drinks, 3 times per week Pt is and has 3 grown children 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 In no acute distress. NECK: No carotid bruits. No JVD. CARDIOVASCULAR: Regular rate and rhythm. No murmur appreciated. RESPIRATORY: No accessory muscle use. Clear to auscultation. Breath sounds equal bilaterally. MUSCULOSKELETAL: No clubbing or cyanosis. No edema. NEUROLOGICAL: Awake and alert. Normal speech. Laboratory Laboratory Tests Test 01/09/18 12:37 01/10/18 05:53 Vitamin B12 Level 255 Folate 9.3 Free Thyroxine 0.76 Thyroid Stimulating Hormone 3rd Gen 1.770 White Blood Count 7.4 Red Blood Count 4.98 Hemoglobin 15.0 Hematocrit 45.1 Mean Corpuscular Volume 90.7 Mean Corpuscular Hemoglobin 30.1 Mean Corpuscular Hemoglobin Concent 33.1 Red Cell Distribution Width 14.0 Platelet Count 265 Mean Platelet Volume 8.7 Neutrophils (%) (Auto) 54.6 Lymphocytes (%) (Auto) 35.1 Monocytes (%) (Auto) 8.5 Eosinophils (%) (Auto) 1.4 Basophils (%) (Auto) 0.4 Neutrophils # (Auto) 4.0 Lymphocytes # (Auto) 2.6 Monocytes # (Auto) 0.6 Eosinophils # (Auto) 0.1 Basophils # (Auto) 0.0 CBC Comment DIFF FINAL Differential Comment Blood Urea Nitrogen 13 Creatinine 0.67 Random Glucose 110 Calcium Level 8.8 Sodium Level 139 Potassium Level 3.7 Chloride Level 104 Carbon Dioxide Level 26.6 Anion Gap 8 Estimat Glomerular Filtration Rate 94 Triglycerides Level 226 Cholesterol Level 163 LDL Cholesterol 50 HDL Cholesterol 68.3 Cholesterol/HDL Ratio 2.38 Result Diagram: 01/10/18 0553 01/10/1853 Imaging Last Impressions Head CT 01/09/18712 Signed Impressions: Service Date/Time: Tuesday, January 09, 2018 07:38 - CONCLUSION: Normal examination. Maco Gonsales MD Head Magnetic Resonance Angiography 01/09/18 0000 Signed Impressions: Service Date/Time: Tuesday, January 09, 2018 09:55 - CONCLUSION: 1. Negative MRA of the brain Edwin August MD Cervical Spine CT 01/09/18 0000 Signed Impressions: Service Date/Time: Tuesday, January 09, 2018 15:09 - CONCLUSION: Negative. MRI of the cervical spine may be of benefit. Travis Cueva MD FACR Carotid Artery Ultrasound 01/09/18 0000 Signed Impressions: Service Date/Time: Tuesday, January 09, 2018 10:20 - CONCLUSION: 1. Minimal carotid plaque with mildly elevated right proximal ICA velocities, likely artifactual although consistent with mild stenosis. 2. No left carotid stenosis. 3. Antegrade vertebral artery flow bilaterally. Kofi Falk MD Brain MRI 01/09/18 0000 Signed Impressions: Service Date/Time: Tuesday, January 09, 2018 09:55 - CONCLUSION: 1. No evidence of acute intracranial pathology. No masses are identified. Edwin August MD Assessment and Plan Assessment and Plan TIA: SMASON inpatient versus outpatient. Outpatient Holter versus event monitor. Patient has been started on aspirin, statin, and Plavix. Den Bunch Jan 10, 2018 07:43
[2018-01-10] MEDS: INSULIN ASPART SUPPLEMENTAL SCALE SQ SCH ×2 (08:10→12:30)
[2018-01-10] MEDS: CLOPIDOGREL 75 MG TAB PO SCH (08:47)
[2018-01-10] MEDS: NICOTINE 21 MG/24 HR PATCH T-DERMAL SCH (08:48)
[2018-01-10] MEDS: SODIUM CHLORIDE 0.9% FLUSH 10 ML FLUSH IV FLUSH SCH (08:50)
[2018-01-10] MEDS ORDERED: REMOVE OLD NICODERM (NICOTINE) PATCH T-DERMAL SCH (09:00)
[2018-01-10] MEDS ORDERED: ASPIRIN 325 MG TAB PO SCH (09:00)
--- NOTE | 2018-01-10 09:33 | HHI.PR ---
Subjective Remarks Pt still feels like she is having some tingling on the left side of her face but this is better and she feels like her LUE is "sluggish" today No A. fib noted on telemetry Objective Vitals Vital Signs Date Time Temp Pulse Resp B/P (MAP) Pulse Ox O2 Delivery O2 Flow Rate FiO2 01/10/18 08:00 97.9 80 16 172/87 (115) 97 01/10/18 04:09 80 01/10/18 03:43 98.6 80 18 137/85 (102) 95 01/10/18 00:19 84 01/10/18 00:03 97.9 109 18 149/90 (109) 94 01/09/18 22:12 95 01/09/18 20:22 98.6 88 18 148/82 (104) 95 01/09/18 20:01 93 01/09/18 15:26 97.1 76 19 139/80 (99) 96 01/09/18 12:10 96.4 100 18 176/ 96 01/09/18 11:09 90 20 170/90 (116) 97 01/09/18 09:48 89 18 199/98 (131) 98 Room Air Result Diagram: 01/10/18 0553 01/10/18 0553 Other Results Laboratory Tests Test 01/09/18 07:30 01/09/18 12:37 01/10/18 05:53 White Blood Count 9.8 TH/MM3 7.4 TH/MM3 Red Blood Count 5.18 MIL/MM3 4.98 MIL/MM3 Hemoglobin 15.7 GM/DL 15.0 GM/DL Hematocrit 46.4 % 45.1 % Mean Corpuscular Volume 89.7 FL 90.7 FL Mean Corpuscular Hemoglobin 30.2 PG 30.1 PG Mean Corpuscular Hemoglobin Concent 33.7 % 33.1 % Red Cell Distribution Width 14.3 % 14.0 % Platelet Count 292 TH/MM3 265 TH/MM3 Mean Platelet Volume 8.7 FL 8.7 FL Neutrophils (%) (Auto) 72.3 % 54.6 % Lymphocytes (%) (Auto) 18.4 % 35.1 % Monocytes (%) (Auto) 8.2 % 8.5 % Eosinophils (%) (Auto) 0.7 % 1.4 % Basophils (%) (Auto) 0.4 % 0.4 % Neutrophils # (Auto) 7.1 TH/MM3 4.0 TH/MM3 Lymphocytes # (Auto) 1.8 TH/MM3 2.6 TH/MM3 Monocytes # (Auto) 0.8 TH/MM3 0.6 TH/MM3 Eosinophils # (Auto) 0.1 TH/MM3 0.1 TH/MM3 Basophils # (Auto) 0.0 TH/MM3 0.0 TH/MM3 CBC Comment DIFF FINAL DIFF FINAL Differential Comment Blood Urea Nitrogen 15 MG/DL 13 MG/DL Creatinine 0.73 MG/DL 0.67 MG/DL Random Glucose 94 MG/DL 110 MG/DL Calcium Level 8.9 MG/DL 8.8 MG/DL Sodium Level 137 MEQ/L 139 MEQ/L Potassium Level 4.3 MEQ/L 3.7 MEQ/L Chloride Level 104 MEQ/L 104 MEQ/L Carbon Dioxide Level 24.1 MEQ/L 26.6 MEQ/L Anion Gap 9 MEQ/L 8 MEQ/L Estimat Glomerular Filtration Rate 85 ML/MIN 94 ML/MIN Hemoglobin A1c 5.5 % Total Bilirubin 0.4 MG/DL Direct Bilirubin 0.1 MG/DL Indirect Bilirubin 0.3 MG/DL Aspartate Amino Transf (AST/SGOT) 32 U/L Alanine Aminotransferase (ALT/SGPT) 28 U/L Alkaline Phosphatase 48 U/L Troponin I LESS THAN 0.02 NG/ML Total Protein 8.2 GM/DL Albumin 4.1 GM/DL Human Chorionic Gonadotropin, Quant 1 MIU/ML Vitamin B12 Level 255 PG/ML Folate 9.3 NG/ML Free Thyroxine 0.76 NG/DL Thyroid Stimulating Hormone 3rd Gen 1.770 uIU/ML Erythrocyte Sedimentation Rate 3 mm/hr Triglycerides Level 226 MG/DL Cholesterol Level 163 MG/DL LDL Cholesterol 50 MG/DL HDL Cholesterol 68.3 MG/DL Cholesterol/HDL Ratio 2.38 RATIO Imaging Last Impressions Head CT 01/09/18 0713 Signed Impressions: Service Date/Time: Tuesday, January 09, 2018 07:38 - CONCLUSION: Normal examination. Maco Gonsales MD Head Magnetic Resonance Angiography 01/09/18 0000 Signed Impressions: Service Date/Time: Tuesday, January 09, 2018 09:55 - CONCLUSION: 1. Negative MRA of the brain Edwin August MD Cervical Spine CT 01/09/18 Signed Impressions: Service Date/Time: Tuesday, January 09, 2018 15:09 - CONCLUSION: Negative. MRI of the cervical spine may be of benefit. Travis Cueva MD FACR Carotid Artery Ultrasound 01/09/18 0000 Signed Impressions: Service Date/Time: Tuesday, January 09, 2018 10:20 - CONCLUSION: 1. Minimal carotid plaque with mildly elevated right proximal ICA velocities, likely artifactual although consistent with mild stenosis. 2. No left carotid stenosis. 3. Antegrade vertebral artery flow bilaterally. Kofi Falk MD Brain MRI 01/09/18 0000 Signed Impressions: Service Date/Time: Tuesday, January 09, 2018 09:55 - CONCLUSION: 1. No evidence of acute intracranial pathology. No masses are identified. Edwin August MD Objective Remarks General: NAD, AAOx3 Chest: CTA Cardiac: Regular Abd: +BS, soft ND/NT Ext: No edema A/P Problem List: (1) Transient neurological symptoms ICD Codes: R29.818 - Other symptoms and signs involving the nervous system Status: Acute Plan: Transient Neurological symptoms ?TIA HTN - Pt is a 47 y/o WF with tobacco use and elevated BP. - Pt presented to the ED with transient neurological symptoms of shakiness in her left hand and some dis-coordination of the left hand. She also felt that her head was shaky and left like the left side of her face "felt weird." She felt off balance when walking and was listing to the left and bumping into the wall. She states that these symptoms persisted until she came to the hospital, approximately 2 hours, and then fully resolved. She was fully aware of what was going on during this episode but states that she felt "very slow." - Her BP in the ED was elevated at 213/99 at admission. - Head CT in the ED was negative. - MRI/MRA Brain both negative - Carotid US with minimal plaquing, no significant stenosis identified - Appreciate Neurology consultation - Pt was started on Plavix for possible TIA - Vasotec PRN - 2D echo pending - Telemetry without any evidence of A. fib - Holter Monitor pending - FLP noted, pt started on Atorvastatin 10mg HS - EEG is pending - Cervical spine CT was negative. - B12, Folic acid, TSH, Free T3 are WNL - Cardiology was consulted for SAMSON which will be done as an outpt per discussion with [facility] Cardiology today - PT evaluation - Supportive care - Further recommendations as the case develops (2) HTN (hypertension) ICD Codes: I10 - Essential (primary) hypertension Status: Chronic Assessment and Plan Patient examined. Assessment and plan formulated with Tracy Vogel PA-C. I agree with the above. Pt's presenting symptoms have resolved. Pt denies any limb weakness. Pt denies any visual disturbance. Pt denies any difficult with speech, word recall, or swallowing. Pt denies any gait difficulties. Neuroimaging studies were negative. See above. EEG (01/09/18) did NOT show seizure activity Pt was seen by Neurology, Dr. Pan. Neurology feels that pt may have suffered a TIA. - discharge on plavix 75mg daily LDL was below 70. Will NOT start pt on statin. start lisinopril 10mg daily for BP control. Keep home blood pressure log. Pt is counselled to stop smoking tobacco. Pt is counselled to decrease/stop alcohol intake. Will discharge to home today. f/u with PCP in one week. f/u with PCP, Dr. Rivera for results of echocardiogram and hypercoag w/u f/u with Neurology, Dr. Pan in 3 weeks. Problem Qualifiers (1) HTN (hypertension): Qualified Codes: I10 - Essential (primary) hypertension Tracy Vogel Jan 10, 2018 09:33 Rehan Thompson DO Jan 10, 2018 14:18
--- NOTE | 2018-01-10 13:54 | MG ---
cc: Alejo Brown MD EEG RECORD NUMBER: [id number]. DATE OF : 1970 FINDINGS: Well-formed alpha activity 8-9 Hz, 10-40 microvolts, low-amplitude beta in the frontal channels, good anterior to posterior gradient. Good EEG variability and reactivity. No lateralizing features appreciated. Reasonable driving with photic stimulation. INTERPRETATION: Normal awake EEG. Clinical correlation. Alejo Brown MD MG/SB , 01:43 PM , 01:53 PM
[2018-01-10] MEDS ORDERED: LISI10TA3 PO (14:11)
[2018-01-10] MEDS ORDERED: ACETAMINOPHEN 325 MG TAB PO PRN (14:30)
[2018-01-10] MEDS ORDERED: PLAV75TA29 PO (14:35)
--- NOTE | 2018-01-10 14:43 | HHI.DCPOC ---
Discharge Care Plan Diagnosis: (1) TIA (transient ischemic attack) (2) HTN (hypertension) Goals to Promote Your Health * To prevent worsening of your condition and complications * To maintain your health at the optimal level Directions to Meet Your Goals Take your medications as prescribed Follow your dietary instruction Follow activity as directed Keep your appointments as scheduled Take your immunizations and boosters as scheduled If your symptoms worsen call your PCP, if no PCP go to Urgent Care Center or Emergency Room Smoking is Dangerous to Your Health. Avoid second hand smoke Call the 24-hour hour crisis hotline for domestic abuse at Rehan Thompson DO Jan 10, 2018 14:43
--- NOTE | 2018-01-10 16:34 | ECHRPT ---
Indication: CVA/TIA CONCLUSIONS The left ventricular systolic function is normal with an estimated ejection fraction in the range of 55-60%. Wall thickness is normal. Normal left ventricular size. No definite wall motion abnormalities. No definite valvular abnormalities are identified. BP: 172 / 87 HR: 80 Rhythm: Sinus MEASUREMENTS (Male / Female) Normal Values Technical Quality:Fair 2D ECHO LV Diastolic Diameter PLAX 4.2 cm 4.2 - 5.9 / 3.9 - 5.3 cm LV Systolic Diameter PLAX 3.1 cm IVS Diastolic Thickness 0.9 cm 0.6 - 1.0 / 0.6 - 0.9 cm LVPW Diastolic Thickness 0.9 cm 0.6 - 1.0 / 0.6 - 0.9 cm LV Relative Wall Thickness 0.4 LVOT Diameter 2.1 cm M-MODE Aortic Root Diameter MM 2.9 cm LA Systolic Diameter MM 3.3 cm LA Ao Ratio MM 1.1 AV Cusp Separation MM 2.1 cm DOPPLER AV Peak Velocity 126.0 cm/s AV Peak Gradient 6.4 mmHg LVOT Peak Velocity 91.3 cm/s LVOT Peak Gradient 3.3 mmHg AV Area Cont Eq pk 2.5 cm Mitral E Point Velocity 76.0 cm/s Mitral A Point Velocity 69.1 cm/s Mitral E to A Ratio 1.1 LV E' Lateral Velocity 12.6 cm/s Mitral E to LV E' Lateral Ratio 6.0 LV E' Septal Velocity 10.5 cm/s Mitral E to LV E' Septal Ratio 7.2 FINDINGS LEFT VENTRICLE The left ventricular systolic function is normal with an estimated ejection fraction in the range of 55-60%. Wall thickness is normal. Normal left ventricular size. No definite wall motion abnormalities. RIGHT VENTRICLE Normal right ventricular size and systolic function. LEFT ATRIUM The left atrial size is normal. RIGHT ATRIUM The right atrial size is normal. ATRIAL SEPTUM Normal atrial septal thickness without atrial level shunting by limited color doppler interrogation. AORTA The aortic root and proximal ascending aorta are normal in size on limited imaging. MITRAL VALVE Structurally normal mitral valve. No mitral valve stenosis or regurgitation. AORTIC VALVE Trileaflet aortic valve. No aortic valve stenosis or regurgitation. TRICUSPID VALVE Structurally normal tricuspid valve. No tricuspid valve stenosis or regurgitation. PULMONARY VALVE The pulmonary valve is not well visualized. VESSELS The inferior vena cava is normal in size. PERICARDIUM No pericardial effusion. Onofre Osorio MD (Electronically Signed) Final Date:10 January 2018 16:33
[2018-01-10 17:02] LABS: HEMOGLOBIN A1C 5.5 % (4.3-6.0)
--- NOTE | 2018-01-11 22:02 | HM ---
Date Performed: 01/09/2018 Time Performed: 19:24:00 HOOKUP DATE: 01/09/18 07:24:00 PM Mon ANALYSIS START TIME: 01/09/2018 7:29:00 PM ANALYSIS END TIME: 01/10/2018 4:02:00 PM PATIENT AGE: 47 PATIENT HEIGHT PATIENT WEIGHT DRUG LIST PATIENT DIAGNOSIS: TIA TEST NARRATIVE: The patient's average heart rate was 85 BPM. Heart rates greater than 120 B PM were noted < 1% of the time. No episodes of bradycardia were noted. No pauses exceeding 2.0 s econds were noted. 5 ventricular ectopics, which represented < 1% of the total beat count, were n oted. The highest ventricular ectopic frequency occurred from 12:00 AM to 01:00 AM Tue. During this time 1 VE(s) occurred. Ventricular ectopics were observed as 5 isolated beat(s) only. No couplets or runs were noted. 3 supraventricular ectopics, which represented < 1% of the total beat count, were noted. The highest supraventricular ectopic frequency occurred from 07:00 AM to 08:00 AM Tue. During this time 2 SVE(s) occurred. No episodes of ST depression (defined as -1.0 mm or more) wer e noted in channel 1. No episodes of ST depression (defined as -1.0 mm or more) were noted in channe l 2. No episodes of ST depression (defined as -1.0 mm or more) were noted in channel 3. no diary ent leandra TEST INTERPRETATION: 1. Predominant underlying rhythm is sinus 2. Occasional PACs and PVCs 3. N o pauses greater than 2.0 sec 4. No episodes of SVT or VT noted 5. No cardiac symptoms noted during t he recorded time interval Signed b y : Sudhakar Muñoz
[2018-01-12 11:54] LABS: DRVVT 1:1 MIX ND (CORRECTED); DRVVT CONFIRM ND (NEGATIVE); HEXAGONAL PHASE CONFIRM ND (NEGATIVE)
[2018-01-12 14:17] LABS: CARDIOLIPIN IGG AB <9.4 GPL; CARDIOLIPIN IGM AB <9.4 MPL
[2018-01-13 18:24] LABS: PROTEIN C ACTIVITY 116 % (70 - 150); PROTEIN S ACTIVITY 113 % (50 - 160)
== END 2018-01-10 17:15 | disposition home or self-care (01) ==
LOC: NEPC 06:52 → NEDA 09:27 → NEPFCDU 11:48
PROVIDERS: ADMIT Hospitalist; ATTEND Hospitalist
DX: G45.9 Transient cerebral ischemic attack, unspecified (principal); I10 Essential (primary) hypertension; K21.9 Gastro-esophageal reflux disease without esophagitis; R00.0 Tachycardia, unspecified; G43.909 Migraine, unspecified, not intractable, without status migrainosus; F17.200 Nicotine dependence, unspecified, uncomplicated
CPT/HCPCS: 70450; 70544; 70551; 72125; 80048; 80061; 80076; 81240; 81241; 82607; 82746; 82948; 83036; 84439; 84443; 84484; 84702; 85025; 85303; 85306; 85613; 85652; 85730; 86147; 86592; 93005; 93225; 93226; 93306; 93880; 95819; 96374; 96376; 97161; 99285; G0378; G8987; G8988; J2060

== ENCOUNTER 2018-01-16 06:48 | Day surgery (SDC) | payer OTHER ==
[~2018-01-16 06:48] MED LIST: IBUP1TAB5 PO; LISI10TA3 PO; PLAV75TA29 PO
[2018-01-16] MEDS ORDERED: POVIDONE IODINE 5% (ANTISEPSIS KIT) 4 APPLICATIONS EACH NARE PRN (07:30)
[2018-01-16] MEDS ORDERED: METOPROLOL TARTRATE 25 MG TAB PO PRN (07:30)
[2018-01-16] MEDS ORDERED: SODIUM CHLORID 0.9% 500 ML IV PRN (07:30)
[2018-01-16] MEDS ORDERED: CHLORHEXIDINE GLUCONATE 2 % 1 PACK (2 CLOTHS) TOPICAL PRN (07:30)
[2018-01-16] MEDS ORDERED: LACTATED RINGER'S 1000 ML IV PRN (07:30)
--- NOTE | 2018-01-16 17:14 | EKG ---
Date Performed: 01/16/2018 Time Performed: 07:46:04 PTAGE: 47 years EKG: Sinus rhythm . Poor R wave progression - probable normal variant Septal T wave changes are nonspecific Since the p revious tracing, no significant change noted Borderline ECG PREVIOUS TRACING : 01/09/18 @ 0717 DOCTOR: Edwin Campbell Interpretating Date/Time 01/16/2018 17:12:22
--- NOTE | 2018-01-18 13:02 | ECHRPT ---
Indication: CVA/TIA CONCLUSIONS Normal left ventricular size and wall thickness. The left ventricular systolic function is normal wi th an estimated ejection fraction in the range of 60-65%. Left ventricular diastolic function parameters a re normal. Normal left atrial appendage size with no evidence of thrombus formation. Normal atrial septal thickness. No atrial level shunt is demonstrated by color flow Doppler or agitated saline imaging. BP: 152 / 93 HR: 66 Rhythm: Technical Quality: Medications Complications Proc. Components The patient was brought to the diagnostic imaging area in a fasting state after o btaining an informed consent. The patient was premedicated with IV Versed and IV Fentanyl. The chicken vaccinator ior pharynx was sprayed with Cetacaine spray and the patient was administered viscous Xylocaine 2 %. The SAMSON probe was passed into the posterior pharynx , mid-esophagus, distal esophagus, and gastric fundus. SAMSON was performed at multiple levels. The patient tolerated the procedure well and there were no complications. The patient was transferred to the floor in satisfactory condition.. FINDINGS LEFT VENTRICLE Normal left ventricular size and wall thickness. The left ventricular systolic function is normal wi th an estimated ejection fraction in the range of 60-65%. Left ventricular diastolic function parameters a re normal. RIGHT VENTRICLE Normal right ventricular size and systolic function. LEFT ATRIUM The left atrial size is normal. RIGHT ATRIUM The right atrial size is normal. ATRIAL APPENDAGES Normal left atrial appendage size with no evidence of thrombus formation. ATRIAL SEPTUM Normal atrial septal thickness. No atrial level shunt is demonstrated by color flow Doppler or agitated saline imaging. AORTA The aortic root and proximal ascending aorta are normal in size on limited imaging. MITRAL VALVE Structurally normal mitral valve. No mitral valve stenosis or regurgitation. AORTIC VALVE Trileaflet aortic valve. No aortic valve stenosis or regurgitation. TRICUSPID VALVE Structurally normal tricuspid valve. No tricuspid valve stenosis or regurgitation. VESSELS The inferior vena cava is normal in size. PULMONARY VALVE The pulmonary valve is not well visualized. PERICADIUM No pericardial effusion. Dayne Wright MD, FACC (Electronically Signed) Final Date:18 January 2018 13:00
== END 2018-01-16 10:03 | disposition home or self-care (01) ==
LOC: HSDC 06:48 → HDIC 06:49 → HSDC 10:03
PROVIDERS: ATTEND Internal Medicine
DX: G45.9 Transient cerebral ischemic attack, unspecified (principal); G47.30 Sleep apnea, unspecified; I10 Essential (primary) hypertension; G24.9 Dystonia, unspecified; E07.9 Disorder of thyroid, unspecified
CPT/HCPCS: 93005; 93312; 93320; 93325